=== PATIENT | female | born 1985 | race Caucasian/White ===

== ENCOUNTER 2021-11-12 11:56 | Inpatient (IN) | payer SELFPAY ==
[2021-11-12] MEDS ORDERED: Ondansetron PF 4 MG/2 ML Vial ONE (12:45)
[2021-11-12 13:06] LABS: #Monocytes 0.5 10x3/uL (0.0-1.1); #Neutrophils 7.6 10x3/uL (1.5-8.4); %Basophils 0.4 % (0.0-2.0); %Eosinophils 0.3 % (0.0-6.0); %Lymphocytes 19.2 % (18.0-47.0); %Monocytes 4.5 % (0.0-10.0); %Neutrophils 75.2 % (40.0-75.0); Hemoglobin 12.2 g/dL (12.0-15.5); Mean Corpuscular HGB CONC 34.4 g/dL (32.0-36.0); Mean Corpuscular Hemoglobin 31.4 pg (27.0-33.0); Mean Corpuscular Volume 91.5 fl (81.6-98.3); Mean Platelet Volume 11.1 fl (7.4-10.4); Platelet Count 411 10x3/uL (150-450); RBC Distribution Width 13.3 % (11.5-14.5); Red Blood Cell (RBC) Count 3.88 10x6/uL (3.90-5.03); White Blood Cell (WBC) Count 10.1 10x3/uL (3.5-10.5)
[2021-11-12 13:25] LABS: ALT (SGPT) 26 U/L (8-55); AST (SGOT) 26 U/L (5-34); Albumin 4.3 g/dL (3.5-5.0); Alkaline Phosphatase 201 U/L (40-110); Anion Gap 23 mmol/L (10-20); BUN (Urea Nitrogen) 9 mg/dL (7.0-18.7); Bilirubin, Total 1.1 mg/dL (0.2-1.2); Calc. Creatinine Clearance 0 mL/min (70-130); Calcium 9.4 mg/dL (7.8-10.44); Carbon Dioxide 17 mmol/L (22-29); Chloride 103 mmol/L (98-107); Globulin 3.9 g/dL (2.4-3.5); Glucose 99 mg/dL (70-105); Potassium 3.7 mmol/L (3.5-5.1); Protein, Total 8.2 g/dL (6.0-8.3); Sodium 139 mmol/L (136-145)
[2021-11-12] MEDS ORDERED: Metoclopramide HCl 10 MG/2 ML VIAL ONE (15:28)
[2021-11-12 17:13] VITALS: BMI 19.3
[2021-11-12] MEDS ORDERED: Ondansetron ODT 4 MG TAB PO PRN (17:36)
[2021-11-12] MEDS ORDERED: Ondansetron PF 4 MG/2 ML Vial IVP PRN (17:36)
[2021-11-12] MEDS ORDERED: Acetaminophen 325 MG TAB PO PRN (17:36)
[2021-11-12] MEDS ORDERED: hydrALAZINE 20 MG/ML VIAL SLOW IVP PRN (17:38)
[2021-11-12] MEDS ORDERED: Electrolyte Replacement Protocol 1 EACH FS SCH (17:45)
[2021-11-12] MEDS: Dextrose 5 % And 0.9 % NaCl 1,000 ML IV SCH (18:03)
[2021-11-12 18:27] LABS: Bilirubin Neg (Negative); Blood, Urine 10 (Negative); Clarity Clear (Clear); Glucose, Urine (Dipstick) Normal (Negative); Ketone, Urine 50 mg/dL (Negative); Leukocyte 25 (Negative); Nitrite Negative (Negative); Protein, Urine (Dipstick) 30 mg/dl (Neg-Trace); Specific Gravity, Urine 1.005 (1.002-1.036)
[2021-11-12 18:30] LABS: Urine Culture Reflex No No
[2021-11-12 18:37] LABS: Bacteria/HPF 1+ HPF (None Seen); RBC/HPF 0-3 HPF (0-3); Squamous Epithelial 0-3 HPF (0-3); Transitional Epithelial 0-3 HPF (None Seen)
[2021-11-12 19:35] LABS: SARS-CoV-2 NAA Rapid Test DETECTED (NotDetected)
[2021-11-12] MEDS: Enoxaparin Sodium 40 MG/0.4 ML SYRINGE SC SCH (20:30)
[2021-11-12] MEDS: Metoclopramide HCl 10 MG/2 ML VIAL IVP SCH (20:31)
[2021-11-12] MEDS: Pantoprazole 40 MG VIAL IVP SCH (20:31)
[2021-11-13 05:21] LABS: #Eosinphils 0.1 10x3/uL (0.0-0.5); #Monocytes 0.5 10x3/uL (0.0-1.1); #Neutrophils 4.8 10x3/uL (1.5-8.4); %Basophils 0.4 % (0.0-2.0); %Eosinophils 1.1 % (0.0-6.0); %Lymphocytes 24.1 % (18.0-47.0); %Monocytes 7.1 % (0.0-10.0); %Neutrophils 66.9 % (40.0-75.0); Hemoglobin 9.8 g/dL (12.0-15.5); Mean Corpuscular HGB CONC 33.7 g/dL (32.0-36.0); Mean Corpuscular Hemoglobin 31.1 pg (27.0-33.0); Mean Corpuscular Volume 92.4 fl (81.6-98.3); Mean Platelet Volume 11.1 fl (7.4-10.4); Platelet Count 315 10x3/uL (150-450); RBC Distribution Width 13.6 % (11.5-14.5); Red Blood Cell (RBC) Count 3.15 10x6/uL (3.90-5.03); White Blood Cell (WBC) Count 7.2 10x3/uL (3.5-10.5)
[2021-11-13] MEDS: Dextrose 5 % And 0.9 % NaCl 1,000 ML IV SCH ×3 (05:29→18:19)
[2021-11-13 05:35] LABS: Anion Gap 11 mmol/L (10-20); BUN (Urea Nitrogen) 5 mg/dL (7.0-18.7); Calc. Creatinine Clearance 87 mL/min (70-130); Calcium 8.3 mg/dL (7.8-10.44); Carbon Dioxide 23 mmol/L (22-29); Chloride 109 mmol/L (98-107); Glucose 91 mg/dL (70-105); Magnesium 2.1 mg/dL (1.6-2.6); Potassium 3.8 mmol/L (3.5-5.1); Sodium 139 mmol/L (136-145)
[2021-11-13] MEDS: Metoclopramide HCl 10 MG/2 ML VIAL IVP SCH ×3 (05:38→22:04)
[2021-11-13] MEDS ORDERED: Cosyntropin 250 MCG VIAL SLOW IVP SCH (10:15)
[2021-11-13] MEDS: Cholecalciferol 1,000 UNITS (25 MCG) TAB PO SCH (10:28)
[2021-11-13] MEDS: Zinc Gluconate 50 MG TAB PO SCH (10:28)
[2021-11-13] MEDS: Pantoprazole 40 MG VIAL IVP SCH ×2 (10:28→22:04)
[2021-11-13] MEDS: Ascorbic Acid 500 mg Chewable Tablet PO SCH (10:28)
[2021-11-13] MEDS ORDERED: Pantoprazole 40 MG VIAL ONE (21:45)
[2021-11-13] MEDS: Enoxaparin Sodium 40 MG/0.4 ML SYRINGE SC SCH (22:03)
[2021-11-13] MEDS: Cephalexin 500 MG CAP PO SCH (22:04)
[2021-11-14] MEDS: Dextrose 5 % And 0.9 % NaCl 1,000 ML IV SCH ×2 (02:20→12:39)
[2021-11-14 05:28] LABS: #Eosinphils 0.1 10x3/uL (0.0-0.5); #Monocytes 0.5 10x3/uL (0.0-1.1); #Neutrophils 2.8 10x3/uL (1.5-8.4); %Basophils 0.5 % (0.0-2.0); %Eosinophils 2.4 % (0.0-6.0); %Lymphocytes 36.4 % (18.0-47.0); %Monocytes 8.9 % (0.0-10.0); %Neutrophils 51.6 % (40.0-75.0); Hemoglobin 9.9 g/dL (12.0-15.5); Mean Corpuscular Hemoglobin 31.5 pg (27.0-33.0); Mean Corpuscular Volume 92.7 fl (81.6-98.3); Mean Platelet Volume 11.5 fl (7.4-10.4); Platelet Count 302 10x3/uL (150-450); RBC Distribution Width 13.7 % (11.5-14.5); Red Blood Cell (RBC) Count 3.14 10x6/uL (3.90-5.03); White Blood Cell (WBC) Count 5.5 10x3/uL (3.5-10.5)
[2021-11-14 05:30] LABS: ALT (SGPT) 24 U/L (8-55); AST (SGOT) 27 U/L (5-34); Albumin 3.2 g/dL (3.5-5.0); Alkaline Phosphatase 134 U/L (40-110); Anion Gap 12 mmol/L (10-20); BUN (Urea Nitrogen) Less than 4 mg/dL (7.0-18.7); Bilirubin, Total 0.4 mg/dL (0.2-1.2); Calc. Creatinine Clearance 87 mL/min (70-130); Calcium 8.3 mg/dL (7.8-10.44); Carbon Dioxide 24 mmol/L (22-29); Chloride 111 mmol/L (98-107); Globulin 3.1 g/dL (2.4-3.5); Glucose 91 mg/dL (70-105); Iron 46 ug/dL (50-170); Iron Binding Capacity, Total 175 mcg/dL (265-497); Lipase 19 U/L (8-78); Potassium 3.8 mmol/L (3.5-5.1); Protein, Total 6.3 g/dL (6.0-8.3); Sodium 143 mmol/L (136-145)
[2021-11-14] MEDS: Metoclopramide HCl 10 MG/2 ML VIAL IVP SCH ×2 (05:39→15:04)
[2021-11-14] MEDS: Ascorbic Acid 500 mg Chewable Tablet PO SCH (10:39)
[2021-11-14] MEDS: Pantoprazole 40 MG VIAL IVP SCH (10:40)
[2021-11-14] MEDS: Cholecalciferol 1,000 UNITS (25 MCG) TAB PO SCH (10:40)
[2021-11-14] MEDS: Cephalexin 500 MG CAP PO SCH (10:40)
[2021-11-14] MEDS: Zinc Gluconate 50 MG TAB PO SCH (10:41)
[2021-11-14 18:38] VITALS: BP 105/49; TEMP 98.1
[2021-11-16 12:14] LABS: EliA Celiac New Method **** NEW METHOD ****
== END 2021-11-14 18:05 | disposition home or self-care (01) | DRG 391 ==
LOC: CSHERS 11:56 → CSHTELE 15:34
PROVIDERS: ADMIT Family Medicine; ATTEND Internal Medicine
PROC: 8E0ZXY6 Isolation (ICD-10-PCS; principal; 2021-11-12)
DX: R11.2 Nausea with vomiting, unspecified (principal); U07.1 COVID-19; J12.82 Pneumonia due to coronavirus disease 2019; E27.40 Unspecified adrenocortical insufficiency; Z68.1 Body mass index [BMI] 19.9 or less, adult; K90.0 Celiac disease; R11.15 Cyclical vomiting syndrome unrelated to migraine; E86.0 Dehydration; R63.4 Abnormal weight loss; R93.89 Abnormal findings on diagnostic imaging of other specified body structures; D64.9 Anemia, unspecified; Z90.710 Acquired absence of both cervix and uterus; Z85.41 Personal history of malignant neoplasm of cervix uteri; Z86.711 Personal history of pulmonary embolism
CPT/HCPCS: 36415; 71045; 71275; 74177; 80048; 80053; 80400; 81001; 82010; 82607; 82728; 82746; 83516; 83540; 83550; 83690; 83735; 84425; 84443; 84484; 85025; 85379; 87086; 93005; 96374; 96375; C9113; J0834; J1650; J2405; J2765; J7042; U0002

== ENCOUNTER 2022-04-16 11:31 | Emergency (ER) | payer SELFPAY ==
[2022-04-16] MEDS ORDERED: Sulfameth/Trimethoprim DS 800-160mg TAB ONE (12:35)
== END 2022-04-16 12:33 | disposition home or self-care (01) ==
LOC: CSHERS 11:31
DX: H60.11 Cellulitis of right external ear (principal)
CPT/HCPCS: 99283

== ENCOUNTER 2023-05-10 20:12 | Emergency (ER) | payer SELFPAY ==
[2023-05-10] MEDS ORDERED: Tetracaine 0.5% PF 4 ML BOT ONE (21:43)
[2023-05-10] MEDS ORDERED: Fluorescein Opthalmic Strip ONE (21:44)
== END 2023-05-10 22:15 | disposition home or self-care (01) ==
LOC: CSHERS 20:12
DX: B02.9 Zoster without complications (principal); F17.290 Nicotine dependence, other tobacco product, uncomplicated
CPT/HCPCS: 99283